=== PATIENT | female | born 1980 | race Caucasian/White ===

== ENCOUNTER 2017-04-18 08:00 | Inpatient (IN) ==
[2017-04-18] MEDS ORDERED: Famotidine 20 MG/2 ML VIAL IVP PRN (08:45)
[2017-04-18] MEDS ORDERED: Naloxone 0.4 MG/ML INJ IVP PRN (08:45)
[2017-04-18] MEDS ORDERED: miSOPROStol 25 MCG TABLET VG PRN (08:50)
[2017-04-18] MEDS ORDERED: *HR* Nalbuphine 20 MG/ML AMPUL IVP PRN (08:50)
[2017-04-18 09:13] LABS: Basophils % 0.2 %; Eosinophils # 0.1 K/mcL (0.0-0.6); Eosinophils % 0.4 %; Hematocrit 34.3 % (35.3-44.9); Hemoglobin 11.5 g/dL (11.5-15.4); Immature Granulocytes % 0.2 % (0-4); Lymphocytes # 2.8 K/mcL (0.6-4.6); Lymphocytes % 22.7 %; Mean Corpuscular HGB Conc 33.5 g/dL (31.6-35.5); Mean Corpuscular Hemoglobin 27.8 pg (28.0-33.3); Mean Corpuscular Volume 83.1 fL (83.0-100.0); Mean Platelet Volume 9.8 fL (9.4-12.4); Monocytes # 0.9 K/mcL (0.0-1.3); Monocytes % 6.9 %; Neutrophils # 8.5 K/mcL (1.6-8.9); Platelet Count 243 K/mcL (140-400); Red Blood Count 4.13 M/mcL (3.82-4.97); Red Cell Distribution Width 14.1 % (11.5-14.5); Segmented Neutrophils % 69.6 %
[2017-04-18] MEDS ORDERED: Ringers Solution, Lactated 1,000 ML ONE (09:15)
[2017-04-18] MEDS ORDERED: Ringers Solution, Lactated 1,000 ML IVC SCH (09:15)
[2017-04-18 09:25] LABS: Alanine Aminotransferase 11 Units/L (0-55); Aspartate Amino Transferase 11 Units/L (5-34); BUN/Creatinine Ratio 13 (6-26); Blood Urea Nitrogen 8 mg/dL (7-20); Lactate Dehydrogenase 123 Units/L (159-327); Uric Acid 5.6 mg/dL (2.6-6.0); eGFR For African Americans > 60 (> 60); eGFR For Non-African Americans > 60 (> 60)
[2017-04-18 10:24] LABS: Glucose 87 mg/dL (70-99)
--- NOTE | 2017-04-18 10:35 | OB/GYN History & Physical ---
Date of Encounter: 04/18/17 Time of Encounter: 10:22 Assessment and Plan (1) 39 weeks gestation of Current visit: Yes Status: Acute plan for vaginal delivery cytotec vaginally nubain as needed for pain epidural intrauterine monitoring when able History of Present Illness Chief complaint: induction HPI: Ms. Vang is a [id number] 36 year old female at 39 weeks gestation here today for an induction of labor. Her has been complicated by subchorionic bleed, threatened , nephrolithiasis, multiple UTIs, gestational diabetes, and chronic HTN. Today she denies vaginal bleeding or discharge, headache, or blurry vision. She has nausea which has been chronic throughout her . Reports good movement, denies leaking of fluid. Past Med Surg Social Fam HX - Past Medical History Medical history: hypertension, migraine Psychiatric history: no psych history - Past Surgical History Surgical History: other - Social History Smoking Status: Former smoker Smokeless Tobacco Status: No Alcohol use: none Drug use: none - Family History Father Living Status: Still Living Hx Family Cardiac Disorders: Yes (Stents) Hx Family Endocrine Disorder: Yes (DM) Grandmother Hx Family Cardiac Disorders: Yes (HTN) Hx Family Cancer: Yes Hx Family Endocrine Disorder: Yes (DM) Obstetrical History - Pregnancies : 10 Term: 3 Ab's: 6 Livin Medications and Allergies Vit Calc,Iron,Folic [ Vitamins] 1 each PO DAILY 09/01/16 [ History] Allergies Oxycodone Allergy (Verified 04/18/17 09:02) Difficulty Breathing Exam - Constitutional Constitutional: well developed, well nourished, no acute distress, obese - HEENT HEENT: Normocephaly, Mucus Membranes Moist - Neck Neck exam: supple - Lungs Respiratory exam: CTAB - Cardiovascular Cardiovascular exam: RRR, +S1, +S2 - Abdomen Abdomen: Present: bowel sounds normal - Extremities Extremities exam: normal inspection - Comments Comments: Baseline 125 Results Result Diagrams: 04/18/17 08:57 04/18/17 08:57 Abnormal lab results WBC 12.3 K/mcL (4.3-11.1) H 04/18/17 08:57 Hct 34.3 % (35.3-44.9) L 04/18/17 08:57 MCH 27.8 pg (28.0-33.3) L 04/18/17 08:57 Lactate Dehydrogenase 123 Units/L (159-327) L 04/18/17 08:57 All other labs normal. - VTE Reasons for not Prescribing Prophylaxis: Treatment not Indicated - Low risk for VTE
--- NOTE | 2017-04-18 10:35 | Anesthesia Evaluation PreOp ---
Date of Encounter: 04/18/17 Time of Encounter: 10:33 - Past History Planned Operation: truong Cardiac History: HTN Pulmonary History: Denies Any Significant HX ANGULAR DEVELOPER History: Denies Any Significant HX Other Medical History: Diabetes Type II (gestatioinal) Anesthesia History: No Prior Anesthetic Complications, Past Anesthesia (knee scopes, carpal tunnel, tonsillectomy, sinus) : Yes (39 weeks, ) Alcohol Use: none Drug use: none Medications and Allergies Vit Calc,Iron,Folic [ Vitamins] 1 each PO DAILY 09/01/16 [ History] Allergies Oxycodone Allergy (Verified 04/18/17 09:02) Difficulty Breathing - Meds/Allergy Pre-op Review Medications Reviewed: Yes Allergies Reviewed: Yes Beta Blockers on Current Med List: No Anesthesia Results - Labs 04/18/17 08:57 04/18/17 08:57 Anesthesia Exam O2 Sat Height 1.68 m Weight 137.6 kg bp 157/82 hr 75 Height: 66 Weight: 137 - HEENT Pupil (Motor): Pupils equal Mallampati: II Teeth: Normal Oral Opening: Greater than 3 - ANGULAR DEVELOPER LOC: Oriented ANGULAR DEVELOPER Motor: Normal RUE, Normal LUE, Normal RLE, Normal LLE, Normal Face ANGULAR DEVELOPER Sensory: Normal: RUE, LUE, RLE, LLE, Face - Cardiac Rhythm: Regular Murmur: None JVD: No Carotid Bruit: No - Pulmonary Breath Sounds: bilateral Clear Respiratory Effort: Symmetrical Anesthesia Assess/Plan ASA Score: 2 Modified [place] Scale for Level of Consciousness: Cooperative, oriented, and tranquil Anesthetic Plan: Regional Monitoring Plan: Standard Monitors
[2017-04-18] MEDS ORDERED: *HR* FentaNYL (PF) 100 MCG/2 ML VIAL ONE (12:27)
[2017-04-18] MEDS ORDERED: Epidural Premix (fent/bupiv) 110 ML EP ONE (12:28)
[2017-04-18] MEDS ORDERED: *HR* Ropivacaine/PF 0.2% 10 ML AMPUL ONE (12:28)
--- NOTE | 2017-04-18 12:28 | OB Labor Progress Note ---
Date of Encounter: 04/18/17 Time of Encounter: 12:25 Labor Progress Note - Subjective Subjective: patient states contactions getting stonger tolerating them well is wanting an epidural still - Cervix Cervix: 5/80/-2 AROM clear fluid - Heart Tones Heart Tones: FHT's 140's reactive - Lemont Lem[place]: contractions every 2-3 min - Plan Plan: will get an epidural and anticipate
[2017-04-18] MEDS ORDERED: *HR* FentaNYL (PF) 100 MCG/2 ML VIAL EP ONE (13:01)
[2017-04-18] MEDS ORDERED: EPHEDrine 50 MG/ML VIAL IVP PRN (13:01)
[2017-04-18] MEDS ORDERED: *HR* Ropivacaine/PF 0.2% 10 ML AMPUL EP ONE (13:01)
--- NOTE | 2017-04-18 13:04 | Anesthesia Procedures ---
Date of Encounter: 04/18/17 Time of Encounter: 13:02 Procedures: Anesthesia - Epidural/Spinal Patient ID/Chart reviewed: Yes Patient examined: Yes OB Eval: Gestational age: 39 OB Eval: : 10 OB Eval: Hx Para: 3 OB Eval: Contractions: Non-stressed pattern Consent Obtained: Yes Supplemental Oxygen: None/Room Air Site Prep: Aseptic Technique, 0.5% Chlorhexidine/Alcohol Patient position: upright Local Anesthetic: Lidocaine 1% Amount of Local Anesthetic used: 4 Touhy Needle Gauge: 18 Touhy Needle Depth (cm): 7 Catheter Depth at Skin (cm): 13 Test Dose (1.5% Lido + Epi): Volume given (mls): 3 Test Dose Result: Negative Loading Dose: 0.25% Marcaine (mls): 6 Loading Dose: Fentanyl (mcg): 100 Loading Dose: Other: 2ml nss Loading Dose Administered: Thru Touhy Needle Infusion Med: 0.125% Bupivacaine w/ 2 mcg/ml Fentanyl Infusion Rate (mls/hr): 16 Interspace Used: L3-L4 Loss of Resistance (SONALI): Yes Blood: No CSF: No Paresthesia: No Procedure: Strict asepsis, good SONALI, FHR unchanged
[2017-04-18] MEDS ORDERED: Epidural Premix (fent/bupiv) 110 ML EP SCH (13:15)
[2017-04-18] MEDS ORDERED: Oxytocin 20 units/ LR 1000 mL 20 UNIT/1,000 ML BAG IVC SCH ×2 (14:15→19:00)
--- NOTE | 2017-04-18 17:24 | OB/GYN Procedure Note ---
Delivery - Delivery Date: 04/18/17 Provider: Fredy Peters Intrapartum events: none Delivery induction: oxytocin, misoprostol Delivery augmentation: rupture of membranes Delivery monitor: external FHT, external uterine, internal FHT Anesthesia: epidural Estimated Blood Loss: 200 - (s) Infant A Infant Delivery Date: 04/18/17 Delivery Time: 16:50 Presentation: vertex Position: LELAND Route of delivery: Gender: Male Viability: Viable Pounds: 8 Ounces: 2 at 1 minute: 8 at 5 mins: 9 Shoulder Dystocia: not encountered Shoulder Dystocia Maneuvers: Lea maneuver Specimens collected: cord blood Placenta: spontaneous Cord: nuchal cord, nuchal reduced - Repair Episiotomy: none Laceration Description: None - Complications Delivery complications: none Delivery comments: Patient is a 36-year-old 7 para 3 at 39-0/7 weeks who is brought in for an induction of labor secondary to term with favorable cervix. Patient has a history of chronic hypertension was on no medications during the . She is also diagnosed as being a gestational diabetic and was seen in maternal medicine for diabetic management. Patient had done well with her blood sugars all within normal limits. Last couple weeks patient had stopped sending her sugars 20 issue this was addressed with her. She was getting twice weekly NSTs all reactive. Patient had a favorable cervix it was recommended when she had 39 weeks to deliver. She was brought to labor and delivery she was a good 3-4 cm Cytotec was placed 3 hours later she was artificially ruptured when she was 5 cm clear fluid. Patient's contractions spaced out she was augmented with Pitocin. Patient progressed rapidly from this point became complete and pushed twice delivering a viable male infant in right occiput anterior presentation at 1650. There was a nuchal cord 1 was reduced there was no meconium, was bulb suctioned on the abdomen. Apgars were 8 at 1 minute, 9 at 5 minutes, infant weight 8lbs 2oz. Placenta was sent to spontaneously with three-vessel cord, home visitor home base head start Dr. Peters, anesthesia epidural, estimated blood loss 200 mL. Perineum cervix and vagina was VISUALIZED intact she had a small periurethral abrasion not bleeding. Uterus was explored she did have some retained membranes these were removed with ring forceps. Good hemostasis was noted and the procedure was terminated. All needle, laps and sponge counts were correct 3 and patient tolerated the delivery well. She will be observed for 2 hours before being taken to floor. - Disposition Mom disposition: stable in LDR disposition: stable in LDR
[2017-04-18] MEDS ORDERED: Acetaminophen 325 MG TABLET PO PRN (19:00)
[2017-04-18] MEDS ORDERED: Rho Immune Globulin 1,500 UNIT SYRINGE IM PRN (19:00)
[2017-04-18] MEDS ORDERED: Measles/Mumps/Rubella Vacc 0.5 ML VIAL SQ PRN (19:00)
[2017-04-18] MEDS: Ibuprofen 600 MG TABLET PO PRN (19:48)
[2017-04-19 03:35] LABS: Basophils % 0.2 %; Eosinophils # 0.1 K/mcL (0.0-0.6); Eosinophils % 0.5 %; Hematocrit 28.6 % (35.3-44.9); Immature Granulocytes % 0.5 % (0-4); Lymphocytes # 2.9 K/mcL (0.6-4.6); Lymphocytes % 22.2 %; Mean Corpuscular HGB Conc 34.3 g/dL (31.6-35.5); Mean Corpuscular Hemoglobin 28.7 pg (28.0-33.3); Mean Corpuscular Volume 83.9 fL (83.0-100.0); Mean Platelet Volume 9.8 fL (9.4-12.4); Monocytes # 0.8 K/mcL (0.0-1.3); Monocytes % 5.9 %; Neutrophils # 9.2 K/mcL (1.6-8.9); Platelet Count 207 K/mcL (140-400); Red Blood Count 3.41 M/mcL (3.82-4.97); Red Cell Distribution Width 14.3 % (11.5-14.5); Segmented Neutrophils % 70.7 %
[2017-04-19 03:37] LABS: Hemoglobin 9.8 g/dL (11.5-15.4)
[2017-04-19] MEDS: Ibuprofen 600 MG TABLET PO PRN (06:35)
--- NOTE | 2017-04-19 08:01 | Discharge Summary ---
Date of Encounter: 04/19/17 Time of Encounter: 07:58 - Discharge Diagnosis (1) Vaginal delivery Priority: Primary Status: Acute Comments: Patient doing well on day 1 Meeting milestones Pain well controlled VSS No difficulty urinating, passing gas Lochia light without clots Patient is Discharge home this afternoon after 24 hours. (2) Anemia complicating puerperium Priority: Secondary Status: Acute Comments: Patient asymptomatic VSS Continue ferrous sulfate upon discharge (3) History of chronic hypertension Priority: Secondary Status: Acute Comments: VSS Not currently on medication HTN precautions given (4) History of migraine Priority: Secondary Status: Acute Comments: Currently has migraine Patient declines medications from hospital Patient may take her imitrex as it is considered safe with Consider Fioricet if needed, education provided on potential for lethargy in both patient and infant - Discharge Medications Prescriptions: Ibuprofen [Motrin] 600 mg PO Q6HR PRN #60 tablet PRN Reason: Cramping Ferrous Sulfate 325 mg PO DAILY #60 tablet Home Medications: Vit Calc,Iron,Folic [ Vitamins] 1 each PO DAILY 09/01/16 [ History] Acetaminophen [Tylenol] 650 mg PO Q6HR PRN #0 tablet 04/19/17 [Rx] Docusate [Colace] 100 mg PO BID capsule 04/19/17 [Rx] Ferrous Sulfate 325 mg PO DAILY #60 tablet 04/19/17 [Rx] Ibuprofen [Motrin] 600 mg PO Q6HR PRN #60 tablet 04/19/17 [Rx] Allergies/Adverse Reactions: Allergies Oxycodone Allergy (Verified 04/18/17 09:02) Difficulty Breathing Data Procedures and tests throughout hospitalization: Laboratory Tests 04/18/17 04/18/17 04/18/17 08:57 08:57 17:28 WBC 12.3 H RBC 4.13 Hgb 11.5 Hct 34.3 L MCV 83.1 MCH 27.8 L MCHC 33.5 RDW 14.1 Plt Count 243 MPV 9.8 Immature Gran % 0.2 Seg Neutrophils % 69.6 Lymphocytes % 22.7 Monocytes % 6.9 Eosinophils % 0.4 Basophils % 0.2 Neutrophils # 8.5 Lymphocytes # 2.8 Monocytes # 0.9 Eosinophils # 0.1 Basophils # 0.0 BUN 8 Creatinine 0.63 Est GFR ( Amer) > 60 Est GFR (Non-Af Amer) > 60 BUN/Creatinine Ratio 13 Glucose 87 Uric Acid 5.6 AST 11 ALT 11 Lactate Dehydrogenase 123 L Baby's Blood Type O RH POSITIVE Mother's Blood Type O RH NEGATIVE Rhogam Indicated YES 04/19/17 03:19 WBC 13.0 H RBC 3.41 L Hgb 9.8 L D Hct 28.6 L MCV 83.9 MCH 28.7 MCHC 34.3 RDW 14.3 Plt Count 207 MPV 9.8 Immature Gran % 0.5 Seg Neutrophils % 70.7 Lymphocytes % 22.2 Monocytes % 5.9 Eosinophils % 0.5 Basophils % 0.2 Neutrophils # 9.2 H Lymphocytes # 2.9 Monocytes # 0.8 Eosinophils # 0.1 Basophils # 0.0 BUN Creatinine Est GFR ( Amer) Est GFR (Non-Af Amer) BUN/Creatinine Ratio Glucose Uric Acid AST ALT Lactate Dehydrogenase Baby's Blood Type Mother's Blood Type Rhogam Indicated Labs on day of discharge: Labs from last 24 hours 04/19/17 04/18/17 04/18/17 03:19 17:28 08:57 WBC 13.0 H RBC 3.41 L Hgb 9.8 L D Hct 28.6 L MCV 83.9 MCH 28.7 MCHC 34.3 RDW 14.3 Plt Count 207 MPV 9.8 Immature Gran % 0.5 Seg Neutrophils % 70.7 Lymphocytes % 22.2 Monocytes % 5.9 Eosinophils % 0.5 Basophils % 0.2 Neutrophils # 9.2 H Lymphocytes # 2.9 Monocytes # 0.8 Eosinophils # 0.1 Basophils # 0.0 BUN 8 Creatinine 0.63 Est GFR ( Amer) > 60 Est GFR (Non-Af Amer) > 60 BUN/Creatinine Ratio 13 Glucose 87 Uric Acid 5.6 AST 11 ALT 11 Lactate Dehydrogenase 123 L Screen Pending Baby's Blood Type O RH POSITIVE Mother's Blood Type O RH NEGATIVE Rhogam Indicated YES Rhogam Req for Mother Pending 04/18/17 08:57 WBC 12.3 H RBC 4.13 Hgb 11.5 Hct 34.3 L MCV 83.1 MCH 27.8 L MCHC 33.5 RDW 14.1 Plt Count 243 MPV 9.8 Immature Gran % 0.2 Seg Neutrophils % 69.6 Lymphocytes % 22.7 Monocytes % 6.9 Eosinophils % 0.4 Basophils % 0.2 Neutrophils # 8.5 Lymphocytes # 2.8 Monocytes # 0.9 Eosinophils # 0.1 Basophils # 0.0 BUN Creatinine Est GFR ( Amer) Est GFR (Non-Af Amer) BUN/Creatinine Ratio Glucose Uric Acid AST ALT Lactate Dehydrogenase Screen Baby's Blood Type Mother's Blood Type Rhogam Indicated Rhogam Req for Mother Date of admission: 04/18/17 08:30 Primary care physician: MANUEL Clifford Consults: 04/18/17 19:00 Consult to Veterinary Inspector [CONS] Routine Comment: Vaginal delivery, consult needed Discharging clinician: Rehana Hwang Anticipated date of discharge: 04/19/17 - Patient Status Disposition: Home, Self-Care Condition: Good Functional capacity at discharge: independent ambulation - Discharge Instructions Follow Up With: Regina Altamirano, OSMIN [Primary Care Provider] - Fredy Peters DO [Partnered Physician] - - Diet and Activity Activity: increase activity as tolerated Diet: regular diet Hospital Course Reason for admission: induction of labor, IUP at term Delivery: Episiotomy: none Laceration: none Other procedures: none complications: none Discharge diagnosis: IUP at term delivered [place] baby: male Time Attestation: Total time spent providing and/or coordinating discharge services: Time Spent: Less than 30 minutes Exam - Constitutional Vitals: Temp Pulse Resp BP Pulse Ox 97.6 F 70 14 127/79 97 04/19/17 04:00 04/19/17 04:00 04/19/17 04:00 04/19/17 04:00 04/19/17 04:00 General appearance IM: cooperative, A&O X 3, pleasant - Respiratory Respiratory exam: Present: CTAB - Cardiovascular Cardiovascular exam IM: Present: RRR, +S1, +S2 - GI/Abdominal GI/Abdominal exam IM: normal bowel sounds, soft - Rectal Rectal exam: deferred - Uterine Tone: Firm Uterus Position: At Umbilicus, Midline - Extremities Exam Extremities exam IM: Present: normal capillary refill, normal inspection, pedal edema, radial pulses palpable and symetrical. Absent: tenderness - Neurological Exam Neurological exam: alert (c/o headache, blood pressure stable. ), oriented X3, reflexes normal
[2017-04-19 08:19] VITALS: BP 156/96
[2017-04-19] MEDS ORDERED: NON-FORMULARY MEDICATION 1 EACH EACH (Prenatal Vit Calc,Iron,Folic [Prenatal Vitamins] 1 E PO SCH (09:00)
[2017-04-19] MEDS ORDERED: Prenatal Vit/FA 1 EACH TABLET PO SCH (09:00)
== END 2017-04-19 14:45 | disposition home or self-care (01) | DRG 774 ==
LOC: 1NENULAB 08:30 → 1NENUOBS 19:46
PROVIDERS: ADMIT Obstetrics & Gynecology; ATTEND Obstetrics & Gynecology

== ENCOUNTER 2018-08-13 15:51 | Observation (INO) ==
--- NOTE | 2018-08-13 16:53 | OB/GYN Progress Note ---
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 Patient states pain then continued to be more constant and radiate down and around to her lower abdomen. Patient states pain was worse when she tried to take a step up. The pain then shot down her leg. Patient reports history of kidney stones but reports this pain feels different. Patient reports good movement and denies contractions, LOF or VB. Patient also denies any fevers or urinary frequency or dysuria. Patient denies intercourse in past 24 hous. Patient is a diabetic that is diet controlled and has history of 6 MABs. All deliveries were term 1 patient reports she had pre-eclampsia. Antepartum ROS: movement normal, no loss of fluid, no vaginal bleeding, no contractions Objective - Vital Signs Vital Signs: Intake and Output 08/13/18 08/13/18 08/13/18 07:59 15:59 23:59 Other: Weight 135.5 kg Patient Weight 08/13/18 23:59 Weight 135.5 kg - Exam FHR: auscultation normal FHR comments: 130 bpm moderate variability 15x15 accels noted Auscultation: bilateral: normal Abdomen: Present: normal appearance, soft, gravid Uterus: Present: normal Cervical dilation: closed Cervix effacement: Thick station: Ballotable Comments: Speculum exam: Moderate amount of thick white discharge noted. Cervix appears visually close. No blood noted.
[2018-08-13 17:11] LABS: Bilirubin,Urine Negative (Negative); Blood,Urine Trace-intact (Negative); Clarity,Urine Clear (Clear); Color,Urine Yellow (Yellow); Glucose,Urine (UA) Normal (Normal); Ketones,Urine >=160 mg/dL (Negative); Leukocyte Esterase,Urine Negative (Negative); Nitrite,Urine Negative (Negative); PH,Urine 6.5 pH Units (5.0-8.0); Protein,Urine 30 mg/dL (Neg-Trace); Urobilinogen,Urine Normal (Normal)
[2018-08-13 17:21] LABS: Amphetamine Screen,Urine Negative ng/mL (Cutoff=1000); Barbiturate Screen,Urine Negative ng/mL (Cutoff=200); Benzodiazepines Screen,Urine Negative ng/mL (Cutoff=200); Cannabinoid Screen,Urine Negative ng/mL (Cutoff = 50); Cocaine Screen,Urine Negative ng/mL (Cutoff= 300); Opiate Screen,Urine Negative ng/mL (Cutoff=300); Phencyclidine Screen,Urine Negative ng/mL (Cutoff=25)
[2018-08-13 17:27] LABS: Bacteria,Urine Few per hpf (None-Few); RBC,Urine 0-3 per hpf (0-3); Squamous Epithelial Cell,Urine Few per lpf (None-Few); WBC,Urine 0-3 per hpf (0-3)
[2018-08-13 18:09] LABS: Candida DNA Not Detected (Not Detect); Gardnerella DNA Not Detected (Not Detect); Trichomonas DNA Not Detected (Not Detect)
--- NOTE | 2018-08-13 18:14 | Discharge Summary ---
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 insulin use: without half-way use Diabetes mellitus complication status: without complication Qualified Code(s): E11.9 - Type 2 diabetes mellitus without complications (4) Obesity affecting in third trimester, antepartum Priority: Secondary Status: Acute (5) Sciatica of right side Priority: Secondary Status: Acute Comments: discussed pain interventions:Stretching, ice, chiropractor - Discharge Medications Home Medications: Vit Calc,Iron,Folic [ Vitamins] 1 each PO DAILY 09/01/16 [ History] Allergies/Adverse Reactions: 3 Allergy/AdvReac Type Severity Reaction Status Date / Time Oxycodone Allergy Difficulty Verified 06/23/18 01:53 Breathing Data Procedures and tests throughout hospitalization: Laboratory Tests 08/13/18 08/13/18 08/13/18 16:40 16:40 16:50 Urine Color Yellow Urine Clarity Clear Urine pH 6.5 Ur Specific [place] 1.020 Urine Protein 30 H Urine Glucose (UA) Normal Urine Ketones >=160 H Urine Blood Trace-intact H Urine Nitrite Negative Urine Bilirubin Negative Urine Urobilinogen Normal Ur Leukocyte Esterase Negative Urine Microscopic RBC 0-3 Urine Microscopic WBC 0-3 Ur Squamous Epith Cells Few Urine Bacteria Few Ur Culture Indicated? NO Urine Opiates Screen Negative Ur Barbiturates Screen Negative Ur Phencyclidine Scrn Negative Ur Amphetamines Screen Negative U Benzodiazepines Scrn Negative Urine Cocaine Screen Negative U Marijuana (THC) Screen Negative Ur Drug Screen Interp See Below Rissa species DNA Not Detected Gardnerella DNA Probe Not Detected Trichomonas DNA Probe Not Detected Labs on day of discharge: Labs from last 24 hours 08/13/18 08/13/18 08/13/18 16:50 16:40 16:40 Urine Color Yellow Urine Clarity Clear Urine pH 6.5 Ur Specific [place] 1.020 Urine Protein 30 H Urine Glucose (UA) Normal Urine Ketones >=160 H Urine Blood Trace-intact H Urine Nitrite Negative Urine Bilirubin Negative Urine Urobilinogen Normal Ur Leukocyte Esterase Negative Urine Microscopic RBC 0-3 Urine Microscopic WBC 0-3 Ur Squamous Epith Cells Few Urine Bacteria Few Ur Culture Indicated? NO Urine Opiates Screen Negative Ur Barbiturates Screen Negative Ur Phencyclidine Scrn Negative Ur Amphetamines Screen Negative U Benzodiazepines Scrn Negative Urine Cocaine Screen Negative U Marijuana (THC) Screen Negative Ur Drug Screen Interp See Below Rissa species DNA Not Detected Gardnerella DNA Probe Not Detected Trichomonas DNA Probe Not Detected Date of admission: 08/13/18 15:51 Discharging clinician: Marija Lucia Anticipated date of discharge: 08/13/18 - Patient Status Disposition: Home, Self-Care Condition: Good - Discharge Instructions Follow Up With: Fredy Peters DO [Partnered Physician] - - Diet and Activity Activity: increase activity as tolerated Diet: diabetic diet 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 Henriquez. Dr. Henriquez reports patient may be discharged home, no new orders. Patient declined any pain medication at this time. Patient encouraged to PO hydrate. Patient scheduled to follow up with Dr. Peters on 08/15/18 Time Attestation: Total time spent providing and/or coordinating discharge services: Time Spent: Less than 30 minutes Exam - Constitutional General appearance IM: A&O X 3, morbidly obese - Respiratory Respiratory exam: Present: CTAB - Cardiovascular Cardiovascular exam IM: Present: RRR, +S1, +S2 - GI/Abdominal GI/Abdominal exam IM: normal bowel sounds - Extremities Exam Extremities exam IM: Present: full ROM, normal capillary refill, normal inspection - Neurological Exam Neurological exam: alert, oriented X3, reflexes normal - VTE Reasons for not Prescribing Prophylaxis: Treatment not Indicated - Low risk for VTE
== END 2018-08-13 18:26 | disposition home or self-care (01) ==
LOC: 1NENULAB
PROVIDERS: ADMIT Advanced Practice Midwife; ATTEND Advanced Practice Midwife

== ENCOUNTER → 2018-08-30 21:00 | Observation (INO) ==
[2018-08-30 19:04] LABS: Amphetamine Screen,Urine Negative ng/mL (Cutoff=1000); Barbiturate Screen,Urine Negative ng/mL (Cutoff=200); Benzodiazepines Screen,Urine Negative ng/mL (Cutoff=200); Cannabinoid Screen,Urine Negative ng/mL (Cutoff = 50); Cocaine Screen,Urine Negative ng/mL (Cutoff= 300); Opiate Screen,Urine Negative ng/mL (Cutoff=300); Phencyclidine Screen,Urine Negative ng/mL (Cutoff=25)
--- NOTE | 2018-08-30 20:50 | Discharge Summary ---
Date of Encounter: 08/30/18 Time of Encounter: 20:51 - Discharge Diagnosis (1) 32 weeks gestation of Priority: Primary Status: Acute Comments: admitted for observation (2) Fall Priority: Secondary Status: Acute Comments: KB negative Reactive NST Qualifiers: Encounter type: initial encounter Qualified Code(s): W19.XXXA - Unspecified fall, initial encounter (3) Rh negative state in antepartum period Priority: Secondary Status: Acute Comments: KB negative (4) NST (non-stress test) reactive on surveillance Priority: Secondary Status: Acute Comments: FHR baseline 120 bpm moderate variability +15x15 accels no decels noted. No contractions. Cat. 1 tracing - Discharge Medications Home Medications: Vit Calc,Iron,Folic [ Vitamins] 1 each PO DAILY 09/01/16 [ History] Folic Acid 1 tab PO DAILY 08/30/18 [History] Allergies/Adverse Reactions: 3 Allergy/AdvReac Type Severity Reaction Status Date / Time Oxycodone Allergy Difficulty Verified 08/30/18 18:04 Breathing Data Procedures and tests throughout hospitalization: Laboratory Tests 08/30/18 08/30/18 18:32 19:00 Volume Blood 0 Urine Opiates Screen Negative Ur Barbiturates Screen Negative Ur Phencyclidine Scrn Negative Ur Amphetamines Screen Negative U Benzodiazepines Scrn Negative Urine Cocaine Screen Negative U Marijuana (THC) Screen Negative Ur Drug Screen Interp See Below Labs on day of discharge: Labs from last 24 hours 08/30/18 08/30/18 19:00 18:32 Volume Blood 0 Urine Opiates Screen Negative Ur Barbiturates Screen Negative Ur Phencyclidine Scrn Negative Ur Amphetamines Screen Negative U Benzodiazepines Scrn Negative Urine Cocaine Screen Negative U Marijuana (THC) Screen Negative Ur Drug Screen Interp See Below Date of admission: 08/30/18 17:43 Discharging clinician: Marija Lucia Anticipated date of discharge: 08/30/18 - Patient Status Disposition: Home, Self-Care Condition: Good Functional capacity at discharge: independent ambulation - Discharge Instructions Follow Up With: Fredy Peters DO [Partnered Physician] - - Diet and Activity Activity: increase activity as tolerated Diet: regular diet 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 Patient denies any impact to abdomen. Patient reports she caught herself on her arm. Patient also report her ankle is sore but declines going to ER tonight for evaluation. Patient reports +FM, denies contractions, LOF or VB. Time Attestation: Total time spent providing and/or coordinating discharge services: Time Spent: Less than 30 minutes Exam - Constitutional General appearance IM: A&O X 3, pleasant, answers questions appropriately - Extremities Exam Extremities exam IM: Present: full ROM, normal inspection Additional comments: Patient reports tenderness on right arm which she landed on. - Neurological Exam Neurological exam: alert, oriented X3, reflexes normal - Other Additional findings: FHR 125 bpm moderate variability +15x15 accels no decels noted. NO contractions. Cat. 1 tracing. - VTE Reasons for not Prescribing Prophylaxis: Treatment not Indicated - Low risk for VTE
[2018-08-31 09:02] LABS: Bilirubin,Urine Negative (Negative); Blood,Urine Negative (Negative); Clarity,Urine Cloudy (Clear); Color,Urine Yellow (Yellow); Glucose,Urine (UA) Normal (Normal); Ketones,Urine Negative (Negative); Leukocyte Esterase,Urine Negative (Negative); Nitrite,Urine Negative (Negative); Protein,Urine Trace mg/dL (Neg-Trace); Specific Gravity,Urine 1.006 (1.010-1.025); Urobilinogen,Urine Normal (Normal)
[2018-08-31 09:05] LABS: Bacteria,Urine Few per hpf (None-Few); Hyaline Casts,Urine None Seen per lpf (None-Few); Squamous Epithelial Cell,Urine Many per lpf (None-Few)
[2018-08-31 09:17] LABS: RBC,Urine 0-3 per hpf (0-3)
== END | disposition home or self-care (01) ==
LOC: 1NENULAB
PROVIDERS: ADMIT Advanced Practice Midwife; ATTEND Advanced Practice Midwife

== ENCOUNTER → 2019-08-24 15:20 | Observation (INO) ==
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
[2019-08-24 12:46] LABS: Basophils % 0.2 %; Eosinophils # 0.1 K/mcL (0.0-0.6); Eosinophils % 0.5 %; Hematocrit 33.1 % (35.3-44.9); Immature Granulocytes % 0.3 % (0-4); Lymphocytes # 2.5 K/mcL (0.6-4.6); Mean Corpuscular HGB Conc 33.2 g/dL (31.6-35.5); Mean Corpuscular Hemoglobin 28.5 pg (28.0-33.3); Mean Corpuscular Volume 85.8 fL (83.0-100.0); Mean Platelet Volume 9.3 fL (9.4-12.4); Monocytes # 0.5 K/mcL (0.0-1.3); Monocytes % 4.6 %; Neutrophils # 8.4 K/mcL (1.6-8.9); Platelet Count 261 K/mcL (140-400); Red Blood Count 3.86 M/mcL (3.82-4.97); Red Cell Distribution Width 14.6 % (11.5-14.5); Segmented Neutrophils % 72.4 %; White Blood Count 11.6 K/mcL (4.3-11.1)
[2019-08-24 13:05] LABS: Alanine Aminotransferase 9 Units/L (7-52); Aspartate Amino Transferase 9 Units/L (13-39); BUN/Creatinine Ratio 15 (6-26); Blood Urea Nitrogen 8 mg/dL (6-20); Lactate Dehydrogenase 96 Units/L (140-271); Uric Acid 5.9 mg/dL (2.3-7.6); eGFR For African Americans > 60 (> 60); eGFR For Non-African Americans > 60 (> 60)
== END | disposition home or self-care (01) ==
LOC: 1NENULAB
PROVIDERS: ADMIT Advanced Practice Midwife; ATTEND Advanced Practice Midwife

== ENCOUNTER → 2019-10-15 21:25 | Observation (INO) ==
[2019-10-15 20:06] LABS: Bilirubin,Urine Negative (Negative); Blood,Urine Trace (Negative); Clarity,Urine Cloudy (Clear); Color,Urine Yellow (Yellow); Glucose,Urine (UA) Normal (Normal); Ketones,Urine Negative (Negative); Leukocyte Esterase,Urine Small (Negative); Nitrite,Urine Negative (Negative); PH,Urine 6.5 pH Units (5.0-8.0); Protein,Urine 30 mg/dL (Neg-Trace); Specific Gravity,Urine 1.025 (1.010-1.025); Urobilinogen,Urine Normal (Normal)
[2019-10-15 20:08] LABS: Bacteria,Urine None Seen per hpf (None-Few); Hyaline Casts,Urine None Seen per lpf (None-Few); RBC,Urine 0-3 per hpf (0-3); Squamous Epithelial Cell,Urine Many per lpf (None-Few)
[2019-10-15 20:14] LABS: Amphetamine Screen,Urine Negative ng/mL (Cutoff=1000); Barbiturate Screen,Urine Negative ng/mL (Cutoff=200); Benzodiazepines Screen,Urine Negative ng/mL (Cutoff=200); Cannabinoid Screen,Urine Negative ng/mL (Cutoff = 50); Cocaine Screen,Urine Negative ng/mL (Cutoff= 300); Opiate Screen,Urine Negative ng/mL (Cutoff=300); Phencyclidine Screen,Urine Negative ng/mL (Cutoff=25)
[2019-10-15 20:20] LABS: Basophils % 0.3 %; Eosinophils % 0.4 %; Hematocrit 32.7 % (35.3-44.9); Immature Granulocytes % 0.5 % (0-4); Lymphocytes # 2.7 K/mcL (0.6-4.6); Lymphocytes % 23.9 %; Mean Corpuscular HGB Conc 33.6 g/dL (31.6-35.5); Mean Corpuscular Hemoglobin 28.5 pg (28.0-33.3); Mean Corpuscular Volume 84.7 fL (83.0-100.0); Mean Platelet Volume 9.5 fL (9.4-12.4); Monocytes # 0.7 K/mcL (0.0-1.3); Monocytes % 5.7 %; Neutrophils # 7.9 K/mcL (1.6-8.9); Platelet Count 280 K/mcL (140-400); Red Blood Count 3.86 M/mcL (3.82-4.97); Red Cell Distribution Width 13.9 % (11.5-14.5); Segmented Neutrophils % 69.2 %; White Blood Count 11.4 K/mcL (4.3-11.1)
[2019-10-15 20:23] LABS: Alanine Aminotransferase 9 Units/L (7-52); Aspartate Amino Transferase 8 Units/L (13-39); BUN/Creatinine Ratio 15 (6-26); Blood Urea Nitrogen 9 mg/dL (6-20); Lactate Dehydrogenase 102 Units/L (140-271); Uric Acid 5.6 mg/dL (2.3-7.6); eGFR For African Americans > 60 (> 60); eGFR For Non-African Americans > 60 (> 60)
== END | disposition home or self-care (01) ==
LOC: 1NENULAB
PROVIDERS: ADMIT Registered Nurse; ATTEND Registered Nurse

== ENCOUNTER → 2019-11-07 02:08 | Observation (INO) | END | disposition home or self-care (01) | LOC: 1NENULAB | PROVIDERS: ADMIT Advanced Practice Midwife; ATTEND Advanced Practice Midwife ==